=== PATIENT | female | born 1970 | race American Indian/Alaskan Native ===

== ENCOUNTER 2017-07-23 08:25 | Emergency (ER) | payer MEDICAID, OTHER ==
[~2017-07-23] VITALS: Ht 162.6 cm; Wt 69.0 kg
[~2017-07-23 08:25] MED LIST: CEPH500C5 PO; CLIN150C2 PO; HYDR1TAB PO; IBUP-814 PO; NO HOME MEDS; PERM60CR TP
[2017-07-23] MEDS ORDERED: CEPH-571 PO (09:10)
[2017-07-23 09:31] VITALS: BP 106/71
== END 2017-07-23 09:33 | disposition home or self-care (01) ==
LOC: ER 08:25
DX: L03.115 Cellulitis of right lower limb (principal); F15.10 Other stimulant abuse, uncomplicated; J45.909 Unspecified asthma, uncomplicated; Z56.0 Unemployment, unspecified; Z59.0 Homelessness
CPT/HCPCS: 73630; 99284; A6449

== ENCOUNTER 2018-04-19 13:31 | Emergency (ER) | payer MEDICAID, OTHER ==
[~2018-04-19 13:31] MED LIST changes: +CEPH-571 PO; -CEPH500C5 PO
== END 2018-04-19 14:15 | disposition left against medical advice (07) ==
LOC: ER 13:32
DX: Z53.21 Procedure and treatment not carried out due to patient leaving prior to being seen by health care provider (principal)

== ENCOUNTER 2019-07-12 09:23 | Emergency (ER) | payer MEDICAID, OTHER ==
[~2019-07-12] VITALS: Ht 152.4 cm; Wt 68.2 kg
[2019-07-12 09:26] VITALS: BP 115/58
[2019-07-12] MEDS ORDERED: CEPH250T PO (09:48)
[2019-07-12] MEDS ORDERED: IBUP-1985 PO (09:48)
[2019-07-12] MEDS ORDERED: ibuprofen tablet 400 MG TABLET PO ONE (09:50)
== END 2019-07-12 10:00 | disposition home or self-care (01) ==
LOC: ER 09:23
DX: L03.116 Cellulitis of left lower limb (principal); J45.909 Unspecified asthma, uncomplicated; F32.9 Major depressive disorder, single episode, unspecified; F15.90 Other stimulant use, unspecified, uncomplicated; Z72.89 Other problems related to lifestyle; Z59.0 Homelessness; Z56.0 Unemployment, unspecified; Z79.899 Other long term (current) drug therapy
CPT/HCPCS: 99283

== ENCOUNTER 2020-01-20 15:09 | Emergency (ER) | payer MEDICAID ==
[~2020-01-20 15:09] MED LIST changes: +IBUP-1985 PO
== END 2020-01-20 15:47 | disposition left against medical advice (07) ==
LOC: ER 15:10
DX: H92.01 Otalgia, right ear (principal); Z53.21 Procedure and treatment not carried out due to patient leaving prior to being seen by health care provider

== ENCOUNTER 2020-09-06 14:46 | Emergency (ER) | payer MEDICAID ==
[~2020-09-06] VITALS: Ht 165.1 cm; Wt 68.2 kg
[2020-09-06 15:14] VITALS: BP 127/76
[2020-09-06] MEDS ORDERED: CEPH250T PO (16:20)
== END 2020-09-06 16:21 | disposition left against medical advice (07) ==
LOC: ER 14:47
DX: L03.115 Cellulitis of right lower limb (principal); M79.671 Pain in right foot; J45.909 Unspecified asthma, uncomplicated; F31.9 Bipolar disorder, unspecified; F15.90 Other stimulant use, unspecified, uncomplicated; Z72.89 Other problems related to lifestyle; Z56.0 Unemployment, unspecified; Z59.0 Homelessness; Z79.2 Long term (current) use of antibiotics; Z79.899 Other long term (current) drug therapy
CPT/HCPCS: 73630; 99283

== ENCOUNTER 2020-09-08 10:25 | Emergency (ER) | payer MEDICAID ==
[~2020-09-08] VITALS: Ht 162.6 cm; Wt 68.2 kg
[~2020-09-08 10:25] MED LIST changes: +CEPH250T PO
[2020-09-08 10:37] VITALS: BP 105/68
== END 2020-09-08 16:41 | disposition left against medical advice (07) ==
LOC: ER 10:26
DX: M79.671 Pain in right foot (principal); Z53.21 Procedure and treatment not carried out due to patient leaving prior to being seen by health care provider

== ENCOUNTER 2021-08-13 14:49 | Emergency (ER) | payer MEDICAID ==
[~2021-08-13 14:49] MED LIST changes: -CEPH250T PO
== END 2021-08-13 17:26 | disposition left against medical advice (07) ==
LOC: ER 14:50
DX: M79.603 Pain in arm, unspecified (principal); Z53.21 Procedure and treatment not carried out due to patient leaving prior to being seen by health care provider

== ENCOUNTER 2021-09-17 16:17 | Emergency (ER) | payer MEDICAID | END 2021-09-17 18:45 | disposition left against medical advice (07) | LOC: ER 16:18 | DX: R50.9 Fever, unspecified (principal); Z53.21 Procedure and treatment not carried out due to patient leaving prior to being seen by health care provider ==

== ENCOUNTER 2021-10-06 18:57 | Emergency (ER) | payer MEDICAID ==
[~2021-10-06] VITALS: Ht 162.6 cm; Wt 68.1 kg
[2021-10-06 19:05] VITALS: BP 128/70
== END 2021-10-06 20:56 | disposition home or self-care (01) ==
LOC: ER 18:58
DX: F10.129 Alcohol abuse with intoxication, unspecified (principal); Y90.9 Presence of alcohol in blood, level not specified; F32.A Depression, unspecified; J45.909 Unspecified asthma, uncomplicated; F15.10 Other stimulant abuse, uncomplicated; Z59.00 Homelessness unspecified; Z56.0 Unemployment, unspecified; Z79.1 Long term (current) use of non-steroidal anti-inflammatories (NSAID); Z79.2 Long term (current) use of antibiotics
CPT/HCPCS: 99281

== ENCOUNTER 2021-12-09 10:19 | Emergency (ER) | payer MEDICAID ==
[~2021-12-09] VITALS: Ht 162.6 cm; Wt 68.2 kg
[2021-12-09 10:26] VITALS: BP 110/78
== END 2021-12-09 12:45 | disposition left against medical advice (07) ==
LOC: ER 10:22
DX: R00.0 Tachycardia, unspecified (principal); Z53.21 Procedure and treatment not carried out due to patient leaving prior to being seen by health care provider

== ENCOUNTER 2023-05-06 11:29 | Emergency (ER) | payer SELFPAY ==
[~2023-05-06] VITALS: Ht 165.1 cm; Wt 67.1 kg
[2023-05-06 11:29] VITALS: BP 110/75; PULSE 79; RESP 18; O2SAT 100
[2023-05-06] MEDS ORDERED: CLIN300C54 PO (11:49)
[2023-05-06] MEDS: CefTRIAXone 1000mg IM Kit (w/lidocaine diluent) IM ONE (12:23)
[2023-05-06 13:00] VITALS: TEMP 98.2
== END 2023-05-06 13:05 | disposition home or self-care (01) ==
LOC: ER 11:29
DX: K04.7 Periapical abscess without sinus (principal); J45.909 Unspecified asthma, uncomplicated; F32.A Depression, unspecified; F10.90 Alcohol use, unspecified, uncomplicated; F15.90 Other stimulant use, unspecified, uncomplicated; Z59.00 Homelessness unspecified; Z56.0 Unemployment, unspecified; Y90.9 Presence of alcohol in blood, level not specified
CPT/HCPCS: 96372; 99283; J0696

== ENCOUNTER 2023-07-28 00:56 | Emergency (ER) | payer MEDICAID ==
[~2023-07-28] VITALS: Ht 165.1 cm; Wt 68.2 kg
[2023-07-28 00:59] VITALS: BP 107/69; PULSE 100; RESP 18; O2SAT 100
== END 2023-07-28 02:45 | disposition left against medical advice (07) ==
LOC: ER 00:56
DX: S00.86XA Insect bite (nonvenomous) of other part of head, initial encounter (principal); Z53.21 Procedure and treatment not carried out due to patient leaving prior to being seen by health care provider; W57.XXXA Bitten or stung by nonvenomous insect and other nonvenomous arthropods, initial encounter; Y93.89 Activity, other specified; Y92.89 Other specified places as the place of occurrence of the external cause; Y99.8 Other external cause status

== ENCOUNTER 2025-02-24 17:48 | Emergency (ER) | payer MEDICAID ==
[~2025-02-24] VITALS: Ht 162.6 cm; Wt 67.9 kg
[~2025-02-24 17:48] MED LIST changes: -IBUP-1985 PO; +IBUP600T52 PO
[2025-02-24 17:49] VITALS: BP 109/75; PULSE 86; RESP 16; TEMP 98.5; O2SAT 100
--- NOTE | 2025-02-24 18:32 | Physician Documentation ---
History of Present Illness ~ General Chief Complaint: See Chief Complaint Stated Complaint: BLOOD PRESSURE Time Seen by MD: 18:16 Primary Medical Doctor: Balta History of Present Illness Initial Comments Waited sits 4-year-old female she presented with complaint of elevated heart rate her heart rate was normal in triage. Re-evaluate her in the lobby and she had eloped Medication Reconciliation Allergies: Coded Allergies: No Known Allergies (Unverified , 07/28/23) Scheduled Cephalexin (Keflex), 1 CAP PO Q6H Clindamycin (Cleocin ), 150 MG PO Q6H Hydrocodone/Acetaminophen (Vicodin 5-500 Tablet), 1-2 TAB PO Q6H Ibuprofen (Motrin), 600 MG PO Q8H Ibuprofen (Ibuprofen), 1 TAB PO Q8H Permethrin Cream* (Elimite Cream 5%*), 1 APPLIC TP ONCE Miscellaneous Medications Home Med List (No Home Medications), (Reported) Past Medical History Past Medical History: Asthma, *DERMATOLOGY*, Depression Past Surgical History: no surgical history Alcohol Use: Alcoholic Drug Use: methamphetamine Lives In: Homeless Occupation: unemployed Review of Systems All Other Systems at this time: Reviewed and Negative ROS As stated above in the HPI, otherwise all systems are reviewed and negative. Physical Exam Physical Exam Vital Signs: Temperature: 98.5, Source: Oral, Heart Rate: 86, Respiratory Rate: 16, BP: 109/75, Pulse Oximetry: 100, Weight: 67.900 Oxygen Flow Rate: 0 Physical Exam General: Alert, no apparent distress. Respiratory: Lungs clear, no respiratory distress. Chest: No accessory muscle use. Cardiovascular: Regular rate and rhythm, no murmurs. Psychiatric: Normal mood and affect. Skin: Normal color, warm and dry. No edema, no ecchymosis. Progress Results/Orders Results/Orders Vital Signs 02/24/25 17:49 Temp 98.5 Pulse 86 Resp 16 B/P (MAP) 109/75 Pulse Ox 100 O2 Flow Rate 0 Medical Decision Making Additional information obtaine: old records Findings eloped Differential Diagnosis g Departure Disposition: LEFT AWOL/ELOPED Impression: Primary Impression: methamphetamine abuse Referrals: NO PRIMARY CARE PROVIDER (PCP) Signature Scribe Signature: 6 Attestation: Scribed for Miles Wong Bladder Blower by Miles Sheldon NP . 02/25/25 18:10 MILES WONG NP Feb 24, 2025 18:32
== END 2025-02-24 18:44 | disposition home or self-care (01) ==
LOC: ER 17:48
DX: F15.10 Other stimulant abuse, uncomplicated (principal); F32.A Depression, unspecified; Z79.899 Other long term (current) drug therapy; Z56.0 Unemployment, unspecified; Z59.00 Homelessness unspecified
CPT/HCPCS: 99282